=== PATIENT | female | born 1995 | race Caucasian/White ===

== ENCOUNTER 2020-12-22 17:36 | Emergency (ER) | payer OTHER ==
[~2020-12-22 17:36] MED LIST: ADIPEX-P37.5 M1 PO; COLACE 100MG C100 MG PO; IBUPROFEN600 MG PO; MACROBID 100 M100 MG PO; NORCO 10-325 T1 EACH PO; NORCO 7.5-3251 EACH PO; WELLBUTRIN SR100 MG PO; ZOFRAN4 MG PO
== END 2020-12-22 22:15 | disposition home or self-care (01) ==
LOC: ER1 17:36
DX: U07.1 COVID-19 (principal); F17.200 Nicotine dependence, unspecified, uncomplicated; Z88.0 Allergy status to penicillin
CPT/HCPCS: 99283; U0002

== ENCOUNTER 2021-01-19 17:37 | Emergency (ER) | payer OTHER | END 2021-01-19 20:25 | disposition home or self-care (01) | LOC: ER1 17:37 | DX: S30.0XXA Contusion of lower back and pelvis, initial encounter (principal); S20.229A Contusion of unspecified back wall of thorax, initial encounter; S10.93XA Contusion of unspecified part of neck, initial encounter; V49.9XXA Car occupant (driver) (passenger) injured in unspecified traffic accident, initial encounter; Z88.0 Allergy status to penicillin; F17.200 Nicotine dependence, unspecified, uncomplicated; Y92.410 Unspecified street and highway as the place of occurrence of the external cause | CPT/HCPCS: 70450; 72125; 72128; 72131; 73110; 73564; 99284 ==